=== PATIENT | female | born 1955 | race Hispanic/Latino ===

== ENCOUNTER 2017-07-21 09:46 | Outpatient (CLI) | payer BC ==
--- NOTE | 2017-07-21 10:53 | SJPRAD ---
THREE VIEWS LUMBAR SPINE: Indication: Low back pain with radiation into the legs. FINDINGS: There is grade I anterolisthesis at L3 on L4. There is advanced disc degenerative disease at L3-4. Th ere are bilateral pars defects at L3. There is scattered osseous calcifications. There is mild to mod erate multilevel spondylosis of the lumbar spine. IMPRESSION: Pars defects at L3 with grade I anterolisthesis and advanced disc degenerative disease at L3-4. POS: [facility]
== END 2017-07-21 09:47 | disposition home or self-care (01) ==
LOC: MWLC RAD 09:46
PROVIDERS: ATTEND Family Medicine
DX: M79.605 Pain in left leg (principal); M47.896 Other spondylosis, lumbar region; M43.16 Spondylolisthesis, lumbar region

== ENCOUNTER 2017-08-01 11:28 | Emergency (ER) | payer BC ==
[2017-08-01 12:13] LABS: #Eosinphils 0.1 thou/uL (0.0-0.7); #Lymphocytes 0.9 thou/uL (1.20-3.40); #Monocytes 0.4 thou/uL (0.11-0.59); #Neutrophils 5.8 thou/uL (1.40-6.50); %Basophils 0.3 % (0.0-1.0); %Eosinophils 0.9 % (0.0-10.0); %Lymphocytes 12.9 % (21.0-51.0); %Monocytes 5.6 % (0.0-10.0); Hematocrit 41.5 % (36.0-47.0); Mean Platelet Volume 9.7 fL (7.4-10.4); Red Blood Cell (RBC) Count 4.28 mill/uL (4.20-5.40); White Blood Cell (WBC) Count 7.3 thou/uL (4.8-10.8)
[2017-08-01 12:37] LABS: ALT (SGPT) 11 U/L (8-55); AST (SGOT) 17 U/L (5-34); Alkaline Phosphatase 119 U/L (40-150); Anion Gap 12 mmol/L (10-20); BUN (Urea Nitrogen) 8 mg/dL (9.8-20.1); Bilirubin, Total 0.6 mg/dL (0.2-1.2); CK (CPK) 85 U/L (29-168); Calc. Creatinine Clearance 0 mL/min (70-130); Calcium 9.8 mg/dL (7.8-10.44); Carbon Dioxide 29 mmol/L (23-31); Chloride 103 mmol/L (98-107); Estimated GFR-MDRD 81; Globulin 3.1 g/dL (2.4-3.5); Lipase 8 U/L (8-78); Protein, Total 7.4 g/dL (6.0-8.3)
[2017-08-01 12:42] LABS: Troponin I Less than 0.010 ng/mL (< 0.028)
--- NOTE | 2017-08-01 12:58 | RAD ---
CHEST ONE VIEW: History: Chest pain. Comparison: 11-26-13 FINDINGS: Portable single view chest. Atherosclerosis of the aorta. Normal cardiac silhouette. The pulmonary ve ssels and hilum are normal. No mass. No consolidation. No pneumothorax or osseous abnormalities. IMPRESSION: 1. Atherosclerosis. 2. No acute cardiopulmonary process. POS: [facility]
== END 2017-08-01 13:35 | disposition home or self-care (01) ==
LOC: ERS 11:28
DX: R07.9 Chest pain, unspecified (principal); T46.5X5A Adverse effect of other antihypertensive drugs, initial encounter; E11.9 Type 2 diabetes mellitus without complications; E78.5 Hyperlipidemia, unspecified; I10 Essential (primary) hypertension; F32.9 Major depressive disorder, single episode, unspecified; Z79.4 Long term (current) use of insulin
CPT/HCPCS: 71010; 80053; 82553; 83690; 84484; 85025; 93005; 94760

== ENCOUNTER 2019-03-09 22:31 | Emergency (ER) | payer BC, MEDICARE ==
[2019-03-09 23:26] LABS: #Eosinphils 0.2 thou/uL (0.0-0.7); #Lymphocytes 1.5 thou/uL (1.20-3.40); #Monocytes 0.6 thou/uL (0.11-0.59); #Neutrophils 7.1 thou/uL (1.40-6.50); %Basophils 0.2 % (0.0-1.0); %Eosinophils 1.6 % (0.0-10.0); %Lymphocytes 15.7 % (21.0-51.0); %Monocytes 6.4 % (0.0-10.0); %Neutrophils 76.1 % (42.0-75.0); Hemoglobin 12.6 g/dL (12.0-16.0); Mean Corpuscular Hemoglobin 31.5 pg (27.0-31.0); Mean Corpuscular Volume 92.7 fL (78.0-98.0); Mean Platelet Volume 9.4 fL (7.4-10.4); Platelet Count 148 thou/uL (130-400); RBC Distribution Width 11.8 % (11.5-14.5); Red Blood Cell (RBC) Count 3.99 mill/uL (4.20-5.40); White Blood Cell (WBC) Count 9.3 thou/uL (4.8-10.8)
[2019-03-09 23:42] LABS: Bacteria/HPF None Seen HPF (None Seen); Bilirubin Negative (Negative); Blood, Urine 1+ (Negative); Clarity Clear (Clear); Glucose, Urine (Dipstick) Normal (Negative); Leukocyte Negative Leu/uL (Negative); Nitrite Negative (Negative); Protein, Urine (Dipstick) Negative (Neg-Trace); RBC/HPF 0-3 HPF (0-3); Squamous Epithelial 0-3 HPF (0-3); Urobilinogen Normal mg/dL (Less than 2); WBC/HPF 0-3 HPF (0-3)
[2019-03-09 23:48] LABS: ALT (SGPT) 8 U/L (8-55); AST (SGOT) 16 U/L (5-34); Albumin 4.1 g/dL (3.4-4.8); Alkaline Phosphatase 118 U/L (40-150); Anion Gap 14 mmol/L (10-20); BUN (Urea Nitrogen) 11 mg/dL (9.8-20.1); Bilirubin, Total 0.5 mg/dL (0.2-1.2); Calc. Creatinine Clearance 0 mL/min (70-130); Calcium 9.8 mg/dL (7.8-10.44); Carbon Dioxide 24 mmol/L (23-31); Chloride 105 mmol/L (98-107); Estimated GFR-MDRD 79; Globulin 3.3 g/dL (2.4-3.5); Glucose 149 mg/dL (80-115); Magnesium 1.5 mg/dL (1.6-2.6); Phosphorus 3.4 mg/dL (2.3-4.7); Potassium 3.8 mmol/L (3.5-5.1); Protein, Total 7.4 g/dL (6.0-8.3); Sodium 139 mmol/L (136-145)
[2019-03-10] MEDS ORDERED: Magnesium 2 GM/50 ML 2 GM in Premix Bag 1 BAG IVPB SCH (02:15)
--- NOTE | 2019-03-10 08:40 | RAD ---
EXAM: Portable chest PROVIDED CLINICAL HISTORY: Weakness COMPARISON: 08/01/2017 FINDINGS: Cardiac and mediastinal silhouette is within normal limits. No focal consolidation, pleural fluid or pneumothorax evident. Vascular calcification is again noted. IMPRESSION: No evidence for an acute cardiopulmonary process.
== END 2019-03-10 03:40 | disposition home or self-care (01) ==
LOC: ERS 22:31
DX: R53.1 Weakness (principal); R20.2 Paresthesia of skin; E11.9 Type 2 diabetes mellitus without complications; Z79.4 Long term (current) use of insulin; E78.5 Hyperlipidemia, unspecified; I10 Essential (primary) hypertension
CPT/HCPCS: 36415; 36416; 71045; 80053; 81003; 81015; 83735; 84100; 84484; 85025; 93005; 96365; J3475

== ENCOUNTER 2019-06-04 22:18 | Emergency (ER) | payer MEDICARE | END 2019-06-04 23:05 | disposition home or self-care (01) | LOC: ERS 22:18 | DX: I10 Essential (primary) hypertension (principal); E11.9 Type 2 diabetes mellitus without complications; E78.5 Hyperlipidemia, unspecified; E78.00 Pure hypercholesterolemia, unspecified; Z79.4 Long term (current) use of insulin | CPT/HCPCS: 99283 ==

== ENCOUNTER 2021-01-12 15:51 | Outpatient (CLI) | payer MEDICARE ==
[2021-01-12 17:03] LABS: ALT (SGPT) 12 U/L (8-55); AST (SGOT) 16 U/L (5-34); Albumin 4.2 g/dL (3.4-4.8); Alkaline Phosphatase 111 U/L (40-110); Anion Gap 16 mmol/L (10-20); BUN (Urea Nitrogen) 14 mg/dL (9.8-20.1); Bilirubin, Total 0.6 mg/dL (0.2-1.2); Calc. Creatinine Clearance 0 mL/min (70-130); Calcium 10.1 mg/dL (7.8-10.44); Carbon Dioxide 26 mmol/L (23-31); Chloride 106 mmol/L (98-107); Globulin 3.1 g/dL (2.4-3.5); Glucose 128 mg/dL (80-115); Protein, Total 7.3 g/dL (5.8-8.1); Sodium 144 mmol/L (136-145)
[2021-01-12 17:07] LABS: #Eosinphils 0.1 10x3/uL (0.0-0.5); #Monocytes 0.5 10x3/uL (0.0-1.1); #Neutrophils 4.4 10x3/uL (1.5-8.4); %Basophils 0.5 % (0.0-2.0); %Eosinophils 1.9 % (0.0-6.0); %Lymphocytes 19.4 % (18.0-47.0); %Monocytes 8.2 % (0.0-10.0); %Neutrophils 69.7 % (40.0-75.0); Hemoglobin 11.9 g/dL (12.0-15.5); Mean Corpuscular HGB CONC 32.2 g/dL (32.0-36.0); Mean Corpuscular Hemoglobin 29.1 pg (27.0-33.0); Mean Corpuscular Volume 90.5 fl (81.6-98.3); Mean Platelet Volume 12.9 fl (7.4-10.4); Platelet Count 139 10x3/uL (150-450); RBC Distribution Width 13.3 % (11.5-14.5); Red Blood Cell (RBC) Count 4.09 10x6/uL (3.90-5.03); White Blood Cell (WBC) Count 6.2 10x3/uL (3.5-10.5)
[2021-01-12 20:02] LABS: Hemoglobin A1c 6.8 % (4.0-6.0)
== END 2021-01-12 15:52 | disposition home or self-care (01) ==
LOC: LABBT 15:51
PROVIDERS: ATTEND Surgery
DX: Z01.818 Encounter for other preprocedural examination (principal); K42.9 Umbilical hernia without obstruction or gangrene
CPT/HCPCS: 80053; 83036; 85025; 93005; 93010

== ENCOUNTER 2021-01-15 05:39 | Day surgery (SDC) | payer MEDICARE ==
[2021-01-14 09:42] VITALS: BMI 29.5
[2021-01-15] MEDS ORDERED: Fentanyl 100 MCG/2 ML VIAL ONE ×2 (06:18→06:44)
[2021-01-15] MEDS ORDERED: Lidocaine 1% w/Epinephrine 1:100K 20 ML VIAL ONE (06:42)
[2021-01-15] MEDS ORDERED: Bupivacaine PF 0.5% 30 ML VIAL ONE (06:42)
[2021-01-15] MEDS ORDERED: Lidocaine 2% Jelly 5 ML TUBE ONE (06:44)
[2021-01-15] MEDS ORDERED: Ondansetron PF 4 MG/2 ML Vial ONE ×2 (08:05→09:35)
[2021-01-15] MEDS ORDERED: PHENYLEPHRINE-NS 100 MCG/ML 10 ML SYRINGE ONE (08:05)
[2021-01-15] MEDS ORDERED: Ketorolac Tromethamine 30 MG/ML VIAL ONE (08:05)
[2021-01-15] MEDS ORDERED: Glycopyrrolate 0.2 MG/ML 5 ML SYRINGE ONE (08:05)
[2021-01-15] MEDS ORDERED: Rocuronium Bromide 10 MG/ML (10ML VIAL) ONE (08:05)
[2021-01-15] MEDS ORDERED: PROPOFOL 200 MG/20 ML VIAL ONE (08:05)
[2021-01-15] MEDS ORDERED: Lidocaine 1% PF 5 ML VIAL ONE (08:05)
[2021-01-15] MEDS ORDERED: SUGAMMADEX SODIUM 500 MG/5 ML VIAL ONE (09:22)
[2021-01-15] MEDS ORDERED: Promethazine HCl 25 MG/ML VIAL ONE (09:23)
[2021-01-15] MEDS ORDERED: HYDROcodone/Acetaminophen 5/325 mg Tablet ONE (11:32)
== END 2021-01-15 12:38 | disposition home or self-care (01) ==
LOC: SDC 05:39
PROVIDERS: ATTEND Surgery
PROC: 0WUF0JZ Supplement Abdominal Wall with Synthetic Substitute, Open Approach (ICD-10-PCS; principal; 2021-01-15)
DX: K43.2 Incisional hernia without obstruction or gangrene (principal); I10 Essential (primary) hypertension; E78.00 Pure hypercholesterolemia, unspecified; E11.9 Type 2 diabetes mellitus without complications; Z79.4 Long term (current) use of insulin; Z79.82 Long term (current) use of aspirin; Z79.899 Other long term (current) drug therapy; Z88.1 Allergy status to other antibiotic agents; Z88.8 Allergy status to other drugs, medicaments and biological substances
CPT/HCPCS: 49565; 49568; 82962; C1781; 36416; J0690; J1885; J2405; J2550; J2704; J3010; S0020

== ENCOUNTER 2021-08-04 14:45 | Outpatient (CLI) | payer MEDICARE | END 2021-08-04 14:46 | disposition home or self-care (01) | LOC: BICMAMMO 14:45 | PROVIDERS: ATTEND Obstetrics & Gynecology | DX: Z12.31 Encounter for screening mammogram for malignant neoplasm of breast (principal); Z80.3 Family history of malignant neoplasm of breast | CPT/HCPCS: 77063; 77067 ==

== ENCOUNTER 2021-09-28 07:40 | Observation (INO) | payer MEDICARE, OTHER ==
[2021-09-28 08:30] LABS: #Lymphocytes 0.6 thou/uL (1.20-3.40); #Monocytes 0.4 thou/uL (0.11-0.59); #Neutrophils 9.6 thou/uL (1.40-6.50); %Basophils 0.3 % (0.0-1.0); %Eosinophils 0.4 % (0.0-10.0); %Lymphocytes 5.9 % (21.0-51.0); %Monocytes 3.5 % (0.0-10.0); Hemoglobin 11.6 g/dL (12.0-16.0); Mean Corpuscular HGB CONC 32.4 g/dL (32.0-36.0); Mean Corpuscular Hemoglobin 30.2 pg (27.0-31.0); Mean Corpuscular Volume 93.1 fL (78.0-98.0); Mean Platelet Volume 9.7 fL (7.4-10.4); Platelet Count 139 thou/uL (130-400); RBC Distribution Width 12.2 % (11.5-14.5); Red Blood Cell (RBC) Count 3.84 mill/uL (4.20-5.40); White Blood Cell (WBC) Count 10.7 thou/uL (4.8-10.8)
[2021-09-28 08:40] LABS: Actual Bicarbonate (HCO3v) 24 mEq/L (22-28); Analyzer IN Cardio ER; Base Excess 0.4 mEq/L (-2.0 to +3.0); Calcium, Ionized (venous) 1.07 mmol/L (1.16-1.32); Chloride (VBG) 102 mmol/L (98-106); Sodium 134.9 mmol/L (133-146); pH (venous) 7.46 (7.32-7.43)
[2021-09-28 09:00] LABS: ALT (SGPT) 13 U/L (8-55); AST (SGOT) 19 U/L (5-34); Alkaline Phosphatase 111 U/L (40-110); Anion Gap 18 mmol/L (10-20); BUN (Urea Nitrogen) 14 mg/dL (9.8-20.1); Bilirubin, Total 0.7 mg/dL (0.2-1.2); Calc. Creatinine Clearance 0 mL/min (70-130); Calcium 9.3 mg/dL (7.8-10.44); Carbon Dioxide 21 mmol/L (23-31); Chloride 104 mmol/L (98-107); Glucose 182 mg/dL (80-115); Potassium 4.1 mmol/L (3.5-5.1); Sodium 139 mmol/L (136-145)
[2021-09-28 12:04] LABS: Troponin I Less than 0.010 ng/mL (< 0.028)
[2021-09-28] MEDS ORDERED: Dextrose 5% in Water 1,000 ML IV PRN (12:35)
[2021-09-28] MEDS ORDERED: Dextrose 50% Abboject 50 ML SYRINGE SLOW IVP PRN (12:35)
[2021-09-28] MEDS ORDERED: Acetaminophen 325 MG TAB PO PRN (12:42)
[2021-09-28] MEDS ORDERED: Ondansetron PF 4 MG/2 ML Vial IVP PRN (12:42)
[2021-09-28] MEDS ORDERED: Ondansetron ODT 4 MG TAB PO PRN (12:42)
[2021-09-28] MEDS ORDERED: HumaLOG 300 UNITS/3 ML VIAL SC PRN (12:42)
[2021-09-28 15:09] LABS: Troponin I Less than 0.010 ng/mL (< 0.028)
[2021-09-28] MEDS: metFORMIN 500 MG TAB PO SCH (18:35)
[2021-09-28 18:39] VITALS: BMI 30.4
[2021-09-28] MEDS ORDERED: Atorvastatin Calcium 10 MG TAB PO SCH (21:00)
[2021-09-28] MEDS ORDERED: Lantus 1000 UNITS/10 ML VIAL SC SCH (21:00)
[2021-09-28] MEDS ORDERED: Gabapentin 100 MG CAP PO SCH (21:00)
[2021-09-28 23:56] LABS: SARS-CoV-2 PCR by NAA Not Detected (NotDetected)
[2021-09-29 04:04] VITALS: TEMP 98.1
[2021-09-29 08:13] VITALS: BP 148/63
[2021-09-29] MEDS ORDERED: Aspirin 81 mg Enteric Coated Tablet PO SCH (09:00)
[2021-09-29] MEDS ORDERED: Losartan 25 MG TAB PO SCH (09:00)
[2021-09-29] MEDS ORDERED: Amlodipine 5 MG TAB PO SCH (09:00)
[2021-09-29] MEDS ORDERED: Lantus 1000 UNITS/10 ML VIAL SC SCH (09:00)
[2021-09-29] MEDS: metFORMIN 500 MG TAB PO SCH (09:24)
[2021-09-29] MEDS ORDERED: ADENOSINE 60 MG/20 ML VIAL ONE (12:09)
== END 2021-09-29 16:30 | disposition home or self-care (01) ==
LOC: ERS 07:40 → ERHOLD 10:25 → 2NO 17:56
PROVIDERS: ADMIT Family Medicine; ATTEND Family Medicine
DX: R42 Dizziness and giddiness (principal); E11.40 Type 2 diabetes mellitus with diabetic neuropathy, unspecified; I10 Essential (primary) hypertension; E78.5 Hyperlipidemia, unspecified; R32 Unspecified urinary incontinence; Z20.822 Contact with and (suspected) exposure to COVID-19; Z79.4 Long term (current) use of insulin; Z79.82 Long term (current) use of aspirin; Z79.84 Long term (current) use of oral hypoglycemic drugs; Z79.899 Other long term (current) drug therapy; Z88.1 Allergy status to other antibiotic agents; Z88.8 Allergy status to other drugs, medicaments and biological substances
CPT/HCPCS: 78452; 80053; 82010; 82805; 82962 ×2; 84484 ×2; 85025; 93005; 93017; 99285; A9500; G0378 ×3; U0003; U0005; 36415; 36416; J0153; J1815

== ENCOUNTER 2022-12-08 21:16 | Emergency (ER) | payer OTHER | END 2022-12-08 22:04 | disposition home or self-care (01) | LOC: ERS 21:16 | DX: L03.113 Cellulitis of right upper limb (principal); E11.9 Type 2 diabetes mellitus without complications; I10 Essential (primary) hypertension; E78.00 Pure hypercholesterolemia, unspecified | CPT/HCPCS: 99283 ==

== ENCOUNTER 2023-08-17 21:19 | Emergency (ER) | payer OTHER | END 2023-08-18 00:58 | disposition left against medical advice (07) | LOC: ERS 21:19 | DX: N32.89 Other specified disorders of bladder (principal); I10 Essential (primary) hypertension; E11.9 Type 2 diabetes mellitus without complications; Z79.4 Long term (current) use of insulin; Z79.84 Long term (current) use of oral hypoglycemic drugs; Z79.899 Other long term (current) drug therapy | CPT/HCPCS: 99283 ==

== ENCOUNTER 2025-03-25 14:52 | Outpatient (CLI) | payer OTHER | END 2025-03-25 14:53 | disposition home or self-care (01) | LOC: BICMAMMO 14:52 | PROVIDERS: ATTEND Family Medicine | DX: Z12.31 Encounter for screening mammogram for malignant neoplasm of breast (principal); M81.0 Age-related osteoporosis without current pathological fracture; M85.851 Other specified disorders of bone density and structure, right thigh; M85.852 Other specified disorders of bone density and structure, left thigh; Z80.3 Family history of malignant neoplasm of breast | CPT/HCPCS: 77063; 77067; 77080 ==